=== PATIENT | female | born 1980 | race Caucasian/White ===

== ENCOUNTER 2016-04-24 08:29 | Emergency (ER) | payer MEDICAID, BC ==
[~2016-04-24] VITALS: Ht 157.5 cm; Wt 99.8 kg
[2016-04-24 08:44] VITALS: BP 139/88
--- NOTE | 2016-04-24 08:48 | NUR ---
Patient ambulated to bed 07.
--- NOTE | 2016-04-24 08:50 | NUR ---
PT PRESENTS TO ER FOR EVALUATION OF LEFT HAND PAIN X3 YEARS. PT DENIES ANY OTHER MEDICAL HX.; DENIES N/V/D; SKIN IS PINK/WARM/DRY; AAOX4 WITH EVEN AND STEADY GAIT; LUNGS CLEAR BL; HR EVEN AND REGULAR; PT DENIES ANY FEVER, CP, SOB, OR COUGH AT THIS TIME; PATIENT STATES PAIN OF 6/10 AT THIS TIME; VSS; PATIENT POSITIONED FOR COMFORT; HOB ELEVATED; BEDRAILS UP X2; BED DOWN. ER MD MADE AWARE OF PT STATUS.
--- NOTE | 2016-04-24 09:02 | NUR ---
Patient to XRAY via wheelchair per tech.
--- NOTE | 2016-04-24 09:28 | NUR ---
Dr. andrews evaluating patient at bedside.
[2016-04-24 09:47] VITALS: BP 101/58
--- NOTE | 2016-04-24 09:47 | NUR ---
Patient discharged with v/s stable. Written and verbal after care instructions given and explained. Patient alert, oriented and verbalized understanding of instructions. Ambulatory with steady gait. All questions addressed prior to discharge. ID band removed. Patient advised to follow up with PMD. Rx of MOTRIN, GABAPENTIN given. Patient educated on indication of medication including possible reaction and side effects. Opportunity to ask questions provided and answered.
== END 2016-04-24 09:47 | disposition home or self-care (01) ==
LOC: MED 08:29
DX: G90.9 Disorder of the autonomic nervous system, unspecified (principal)